=== PATIENT | female | born 1955 | race Caucasian/White ===

== ENCOUNTER 2016-07-02 15:41 | Inpatient (IN) | payer BC ==
[~2016-07-02] VITALS: Ht 167.6 cm; Wt 89.3 kg
[2016-09-28] VITALS (13 sets, daily range): BP systolic 96–141; BP diastolic 47–95; PULSE 76–110; TEMP 98.2–100
[2016-09-28] MEDS ORDERED: NORCO 325 MG-7.1 TAB PO (05:43)
[2016-09-28] MEDS ORDERED: MAXZIDE-25MG TA1 TAB PO (05:45)
[2016-09-28] MEDS ORDERED: NATURAL POTASS595 MG PO (05:45)
[2016-09-28] MEDS ORDERED: CLARITIN D TAB1 TAB PO (05:46)
[2016-09-28] MEDS ORDERED: MASON NATURAL1000 IU PO (05:47)
[2016-09-28] MEDS ORDERED: FERRO-TIME325 MG PO (05:47)
[2016-09-28] MEDS ORDERED: FOLIC ACID0.4 MG PO (05:47)
[2016-09-28] MEDS ORDERED: MAGNESIUM200 MG PO (05:48)
[2016-09-28] MEDS ORDERED: VITAMIN B-1000 MCG/T PO (05:50)
[2016-09-28] MEDS ORDERED: VITAMIN D1000 IU PO (06:02)
[2016-09-28] MEDS ORDERED: NATURE'S BLE1000 MCG PO (06:03)
[2016-09-28] MEDS ORDERED: GINSANA PO (06:04)
[2016-09-28] MEDS ORDERED: GLUCOSAMINE & C1 TAB PO (06:05)
[2016-09-29] VITALS (7 sets, daily range): BP systolic 92–120; BP diastolic 41–77; PULSE 84–110; TEMP 97.8–99.8
[2016-09-29 07:02] LABS: HEMATOCRIT 28.8 % (37.0-47.0); HEMOGLOBIN 9.6 g/dl (12.5-16.0)
[2016-09-30 00:03] VITALS: BP 121/51; PULSE 94; TEMP 99.8
[2016-09-30 04:00] VITALS: BP 111/57; PULSE 81; PULSE 89; TEMP 98.8
[2016-09-30 06:41] LABS: HEMATOCRIT 28.6 % (37.0-47.0); HEMOGLOBIN 9.6 g/dl (12.5-16.0)
[2016-09-30 07:07] VITALS: BP 97/53; PULSE 87; TEMP 98.6
[2016-09-30 12:24] VITALS: BP 102/61; PULSE 91; TEMP 98.7
[2016-09-30 16:03] VITALS: BP 103/61; PULSE 92; TEMP 98.6
[2016-09-30 19:49] VITALS: BP 107/63; PULSE 72; TEMP 97.3
[2016-10-01 01:45] VITALS: BP 113/61; PULSE 74; TEMP 97.5
[2016-10-01 06:25] VITALS: BP 109/61; PULSE 72; TEMP 99.4
[2016-10-01] MEDS ORDERED: ASPI325T6 PO (06:39)
[2016-10-01] MEDS ORDERED: NORCO 325 MG-7.1 TAB PO (06:40)
[2016-10-01] MEDS ORDERED: CELEBREX 200MG200 MG PO (06:40)
[2016-10-01] MEDS ORDERED: SENOKOT S 50 MG1 TAB PO (06:41)
[2016-10-01] MEDS ORDERED: ROXICODONE 55 MG/TAB PO (06:41)
[2016-10-01 11:48] VITALS: BP 104/64; PULSE 83; TEMP 97.9
== END 2016-10-01 14:13 | disposition home or self-care (01) | DRG 470 ==
LOC: JCC 09-28 05:17
PROVIDERS: Orthopaedic Surgery
PROC: 0SRB0JA Replacement of Left Hip Joint with Synthetic Substitute, Uncemented, Open Approach (ICD-10-PCS; principal; 2016-09-28 07:30)
DX: M16.12 Unilateral primary osteoarthritis, left hip (principal)
CPT/HCPCS: A4315; A9284; C1713; C1776; J0690; J2250; J2405; J2704; J3010; J7120

== ENCOUNTER → 2016-09-14 | Outpatient (CLI) | payer OTHER ==
[~2016-09-14] MED LIST: ASPI325T6 PO; CELEBREX 200MG200 MG PO; CLARITIN D TAB1 TAB PO; FERRO-TIME325 MG PO; FOLIC ACID0.4 MG PO; GINSANA PO; GLUCOSAMINE & C1 TAB PO; MAGNESIUM200 MG PO; MASON NATURAL1000 IU PO; MAXZIDE-25MG TA1 TAB PO; NATURAL POTASS595 MG PO; NATURE'S BLE1000 MCG PO; NORCO 325 MG-7.1 TAB PO; ROXICODONE 55 MG/TAB PO; SENOKOT S 50 MG1 TAB PO; VITAMIN B-1000 MCG/T PO; VITAMIN D1000 IU PO
== END ==
LOC: COL.LAB 14:12
DX: Z96.642 Presence of left artificial hip joint (principal)

== ENCOUNTER → 2016-09-19 | Outpatient (REF) | LOC: ZLAB.WCH 13:17 | DX: Z01.89 Encounter for other specified special examinations (principal) ==

== ENCOUNTER 2016-12-18 09:44 | Inpatient (IN) | payer BC ==
[~2016-12-18] VITALS: Ht 167.6 cm; Wt 89.4 kg
[~2016-12-18 09:44] MED LIST changes: +BIOTIN5000 MCG PO; -NATURE'S BLE1000 MCG PO
[2017-02-01] VITALS (11 sets, daily range): BP systolic 108–146; BP diastolic 65–88; PULSE 72–82; TEMP 97.5–98.2
[2017-02-01] MEDS ORDERED: CIPRO 500MG TA500 MG PO (08:12)
[2017-02-01] MEDS ORDERED: ECHINACEA 5001 EACH (08:14)
[2017-02-01] MEDS ORDERED: VITAMINC500CH (08:16)
[2017-02-01 08:22] LABS: PH 5 (5-8); SQUAMOUS EPITHELIAL 0-2 /hpf; URINE APPEARANCE Clear; URINE BACTERIA None Seen /hpf; URINE BILIRUBIN Negative (NEGATIVE); URINE BLOOD Negative (NEGATIVE); URINE COLOR Yellow; URINE GLUCOSE Negative (NEGATIVE); URINE KETONE Negative (NEGATIVE); URINE RBC 0-2 /hpf; URINE UROBILINOGEN Negative (NEGATIVE); URINE WBC 0-2 /hpf
[2017-02-02] VITALS (7 sets, daily range): BP systolic 103–114; BP diastolic 51–80; PULSE 84–100; TEMP 97.8–99.6
[2017-02-02 07:19] LABS: HEMATOCRIT 33.7 % (37.0-47.0); HEMOGLOBIN 11.3 g/dl (12.5-16.0)
[2017-02-03 00:11] VITALS: BP 107/57; PULSE 94; TEMP 97.4
[2017-02-03 03:57] VITALS: BP 108/57; PULSE 95; TEMP 99.1
[2017-02-03] MEDS ORDERED: NORCO 325 MG-7.1 TAB PO (06:39)
[2017-02-03] MEDS ORDERED: ROXICODONE 55 MG/TAB PO (06:40)
[2017-02-03] MEDS ORDERED: TYLENOL 500MG500 MG PO (06:41)
[2017-02-03 06:48] LABS: HEMATOCRIT 31.2 % (37.0-47.0); HEMOGLOBIN 10.6 g/dl (12.5-16.0)
[2017-02-03 07:13] VITALS: BP 109/64; PULSE 87; TEMP 98.2
[2017-02-03 11:55] VITALS: BP 98/69; PULSE 86; TEMP 97.9
[2017-02-03 15:39] VITALS: BP 115/61; PULSE 85; TEMP 98
[2017-02-03 20:14] VITALS: BP 106/90; PULSE 99; TEMP 98.4
[2017-02-04] VITALS: BP 121/65; PULSE 99; TEMP 98.4
[2017-02-04 03:55] VITALS: BP 112/62; PULSE 94; TEMP 98.7
[2017-02-04 07:27] LABS: HEMATOCRIT 30.1 % (37.0-47.0); HEMOGLOBIN 10.1 g/dl (12.5-16.0)
[2017-02-04 08:07] VITALS: BP 120/71; PULSE 94; TEMP 97.6
[2017-02-04 12:16] VITALS: BP 107/65; PULSE 84; TEMP 98.7
== END 2017-02-04 13:50 | disposition home or self-care (01) | DRG 470 ==
LOC: JCC 02-01 06:54
PROVIDERS: Orthopaedic Surgery
PROC: 0SR90JA Replacement of Right Hip Joint with Synthetic Substitute, Uncemented, Open Approach (ICD-10-PCS; principal; 2017-02-01 09:30)
DX: M16.11 Unilateral primary osteoarthritis, right hip (principal); E78.5 Hyperlipidemia, unspecified; Z96.642 Presence of left artificial hip joint
CPT/HCPCS: A9284; C1713; C1776; J0690; J1100; J2250; J2405; J2704; J3010; J7120

== ENCOUNTER → 2017-01-21 | Outpatient (CLI) | payer BC ==
[~2017-01-21] MED LIST changes: -BIOTIN5000 MCG PO; +NATURE'S BLE1000 MCG PO
== END ==
LOC: COL.LAB 09:25
DX: Z01.812 Encounter for preprocedural laboratory examination (principal)

== ENCOUNTER → 2017-01-22 | Outpatient (REF) | LOC: ZLAB.WCH 18:04 | DX: Z01.89 Encounter for other specified special examinations (principal) ==

== ENCOUNTER → 2018-04-07 | Outpatient (REF) ==
[~2018-04-07] MED LIST changes: +BIOTIN5000 MCG PO; +CIPRO 500MG TA500 MG PO; +ECHINACEA 5001 EACH; -NATURE'S BLE1000 MCG PO; +TYLENOL 500MG500 MG PO; +VITAMINC500CH
== END ==
LOC: ZLAB.WCH 18:59
DX: Z01.89 Encounter for other specified special examinations (principal)

== ENCOUNTER → 2021-10-09 | Outpatient (CLI) | payer MEDICARE, OTHER | LOC: COL.PUL 09-23 08:00 | DX: R06.02 Shortness of breath (principal) ==